=== PATIENT | female | born 1990 | race American Indian/Alaskan Native ===

== ENCOUNTER 2019-02-04 11:29 | Emergency (ER) | payer SELFPAY ==
[2019-02-04 13:16] LABS: Bilirubin,Urine NEG (Negative); Blood,Urine LG (Negative); Color,Urine Yellow (Yellow); Mucus,Urine FEW /HPF; Protein,Urine <15 mg/dL mg/dL (Negative); Urobilinogen,Urine < 2.0 mg/dL (<2.0)
[2019-02-04 13:28] LABS: Basophils # (Auto) 0.1 K/mm3 (0.0-0.1); Eosinophils # (Auto) 0.1 K/mm3 (0.0-0.4); Eosinophils % (Auto) 1.3 % (0.0-4.3); Hematocrit 37.1 % (30.3-42.9); Hemoglobin 11.9 gm/dl (10.1-14.3); Lymphocytes # (Auto) 3.6 K/mm3 (1.2-5.4); Lymphocytes % (Auto) 38.6 % (13.4-35.0); Mean Corpuscular HGB Conc 32 % (30-34); Mean Corpuscular Volume 81 fl (79-97); Monocytes # (Auto) 0.6 K/mm3 (0.0-0.8); Platelet Count 238 K/mm3 (140-440); Red Blood Count 4.61 M/mm3 (3.65-5.03); Red Cell Distribution Width 17.4 % (13.2-15.2)
[2019-02-04 13:32] LABS: Alanine Aminotransferase 13 units/L (7-56); Albumin 3.9 g/dL (3.9-5); BUN/Creatinine Ratio 15; Blood Urea Nitrogen 9 mg/dL (7-17); Calcium 9.1 mg/dL (8.4-10.2); Hemolysis Index 4
--- NOTE | 2019-02-04 14:23 | Emergency Department Report ---
ED Abdominal Pain HPI - General Chief Complaint: Nausea/Vomiting/Diarrhea Stated Complaint: ABD PAIN/N/V Time Seen by Provider: 02/04/19 13:42 Source: patient Mode of arrival: Ambulatory Limitations: No Limitations - History of Present Illness Initial Comments: 28 female c/o abdominal pain every morning between 4a-6am x 1 month. The pain in mostly at RLQ radiates to center of her abdomen. Pain worsens with lying flat and she associated with burning around her breast. She reports a h/o acid reflux, gastritis, and umbilical hernia. She denies fever no diarrhea no cough or URI symptoms. LMP 01/03/19 She's currently taking gaviscon for gastritis as prescribed by her GI doctor -: Gradual, month(s) (1) Location: RUQ, suprapubic Migration to: suprapubic Severity: moderate Severity scale (0 -10): 6 Quality: burning Consistency: constant Improves With: nothing Worsens With: other (lying flat and certain foods) Associated Symptoms: nausea, vomiting. denies: diarrhea, fever, chills, constipation, melena, hematuria Treatments Prior to Arrival: antacids - Related Data LMP Date: 01/03/19 Previous Rx's Medication Instructions Recorded Last Taken Type Famotidine [Pepcid] 20 mg PO BID 30 Days #60 tablet 02/04/19 Unknown Rx Allergies Allergy/AdvReac Type Severity Reaction Status Date / Time No Known Allergies Allergy Unverified 02/04/19 11:35 ED Review of Systems ROS: Stated complaint: ABD PAIN/N/V Other details as noted in HPI Comment: All other systems reviewed and negative Gastrointestinal: abdominal pain, nausea, vomiting. denies: diarrhea, constipation, melena, hematochezia Genitourinary: denies: dysuria ED Past Medical Hx - Past Medical History Previous Medical History?: Yes Additional medical history: Anemia. Gastritis. "enlarged liver." - Surgical History Past Surgical History?: No - Social History Smoking Status: Never Smoker - Medications Home Medications: Home Medications Medication Instructions Recorded Confirmed Last Taken Type Famotidine [Pepcid] 20 mg PO BID 30 Days #60 tablet 02/04/19 Unknown Rx ED Physical Exam - General Limitations: No Limitations General appearance: alert, in no apparent distress - Eye Eye exam: Present: normal appearance - Respiratory Respiratory exam: Present: normal lung sounds bilaterally, respiratory distress - Cardiovascular Cardiovascular Exam: Present: regular rate, normal heart sounds - GI/Abdominal GI/Abdominal exam: Present: soft, tenderness (RLQ), normal bowel sounds. Absent: distended, guarding, rebound, rigid - Back Exam Back exam: Present: normal inspection, full ROM - Neurological Exam Neurological exam: Present: alert, oriented X3 - Psychiatric Psychiatric exam: Present: normal affect - Skin Skin exam: Present: warm, dry, intact, normal color ED Course Vital Signs 02/04/19 02/04/19 02/04/19 12:11 15:11 18:57 Temperature 98.1 F 98.7 F 98.3 F Pulse Rate 73 77 62 Respiratory 18 18 18 Rate Blood Pressure 129/100 181/117 151/96 O2 Sat by Pulse 99 100 99 Oximetry ED Medical Decision Making - Lab Data Result diagrams: 02/04/19 12:39 02/04/19 12:39 - Radiology Data Radiology results: report reviewed CT ABDOMEN: Lung Bases: No significant abnormality. Liver: No significant abnormality. Biliary: No significant abnormality. Spleen: No significant abnormality. Unenlarged. Pancreas: No significant abnormality. Adrenals: No significant abnormality. Kidneys: No significant abnormality. Lymphatics: No lymphadenopathy. Vasculature: No significant abnormality. Bowel/Peritoneum: No acute findings. No free air. No free fluid. Normal appe ndix. Small fat- containing umbilical hernia. CT PELVIC: : No significant abnormality. Lymphatics: No lymphadenopathy. Osseous Structures: No aggressive appearing osseous lesions. Additional Findings: None IMPRESSION: 1. No acute findings. 2. Small fat-containing umbilical hernia. - Medical Decision Making 28 yo female with hx of chronic gastritis. Today c/o RLQ pain. Pain every morning from 4am-6a. Labs with no acute findings, CTof abd.pelvis no acute findings. Pt is followed by GI instruct follow up GI for further evaluation. Critical Care Time: No Critical care attestation.: If time is entered above; I have spent that time in minutes in the direct care of this critically ill patient, excluding procedure time. ED Disposition Clinical Impression: Abdominal pain Qualifiers: Abdominal location: right lower quadrant Qualified Code(s): R10.31 - Right lower quadrant pain Gastritis Qualifiers: Gastritis type: unspecified gastritis Chronicity: chronic Gastritis bleeding: without bleeding Qualified Code(s): K29.50 - Unspecified chronic gastritis without bleeding Disposition: DC-01 TO HOME OR SELFCARE Is pt being admited?: No Does the pt Need Aspirin: No Condition: Stable Instructions: Gastritis (ED), Abdominal Pain (ED) Additional Instructions: The cat scan done today has no acute findings. Your test was negative. The cause of your ongoing abdominal pain is still not clear. I recommend your follow up with your Gastroenterlogist for further work up of your abdominal pain. I suggest you take Pepcid 20 mg BID for your continuing stomach burning and pain. Continue to modify your diet. No sodas, decrease fatty foods, acidic food et. Follow up with your PCP to get H.Plyori test if this has not been done in the past I also recommend out patient RUQ ultrasound to r/o gallbadder disease or gallstones may be unlikely because your symptoms does not appear to be cause from your gallbladder but to be complete that is my recommendation Prescriptions: Famotidine [Pepcid] 20 mg PO BID 30 Days #60 tablet Referrals: PRIMARY CARE, [Primary Care Provider] - 3-5 Days
--- NOTE | 2019-02-04 17:51 | Cat Scan Report ---
CT ABDOMEN AND PELVIS WITH CONTRAST HISTORY: Right lower quadrant abdominal pain. COMPARISON: None TECHNIQUE: Routine abdominal and pelvic CT exam performed following intravenous contrast administrat ion. The patient received 100 mL of IV Omnipaque 300. All CT scans at this location are performed usi ng CT dose reduction for ALARA by means of automated exposure control. FINDINGS: CT ABDOMEN: Lung Bases: No significant abnormality. Liver: No significant abnormality. Biliary: No significant abnormality. Spleen: No significant abnormality. Unenlarged. Pancreas: No significant abnormality. Adrenals: No significant abnormality. Kidneys: No significant abnormality. Lymphatics: No lymphadenopathy. Vasculature: No significant abnormality. Bowel/Peritoneum: No acute findings. No free air. No free fluid. Normal appendix. Small fat-containin g umbilical hernia. CT PELVIC: : No significant abnormality. Lymphatics: No lymphadenopathy. Osseous Structures: No aggressive appearing osseous lesions. Additional Findings: None IMPRESSION: 1. No acute findings. 2. Small fat-containing umbilical hernia. Signer Name: Donta Madison MD Signed: 02/04/2019 5:46 PM Workstation Name: [id number]
[2019-02-04] MEDS ORDERED: ALUM-MAG HYDROXIDE-SIMETHICONE 200-200-20MG/5ML ORAL LIQD 30 ML PO ONE (18:31)
[2019-02-04] MEDS ORDERED: LIDOCAINE VISCOUS 2% 15 ML ORAL LIQD PO ONE (18:32)
[2019-02-04 18:58] VITALS: BP 151/96
== END 2019-02-04 19:14 | disposition home or self-care (01) ==
LOC: ED 11:29
DX: K29.70 Gastritis, unspecified, without bleeding (principal); D64.9 Anemia, unspecified
CPT/HCPCS: 36415; 74177; 80053; 81001; 84703; 85025; 99284; Q9967

== ENCOUNTER 2021-02-01 11:16 | Emergency (ER) | payer MEDICAID ==
[2021-02-01] MEDS ORDERED: ONDANSETRON 4 MG/2 ML INJ IV ONE (11:34)
[2021-02-01] MEDS ORDERED: MORPHINE 4 MG/1 ML INJ IV ONE (11:34)
[2021-02-01 12:16] VITALS: BP 129/79
--- NOTE | 2021-02-01 12:20 | Emergency Department Report ---
ED General Adult HPI - General Chief complaint: Abdominal Pain Stated complaint: ABDOMINAL PAIN Time Seen by Provider: 02/01/21 11:24 Source: patient Mode of arrival: Ambulatory Limitations: No Limitations - History of Present Illness Initial comments: 30-year-old -[place] female patient presents with complaints of sudden onset of mid/upper abdominal pain starting around 6 AM today. Patient states the pain awoke her from her sleep and feels like a sharp stabbing and cramping type pain. Pain improves with laying on her left side. She reports 2 episodes of vomiting and denies any hematemesis/coffee-ground emesis diarrhea, melena/hematochezia, urinary symptoms, fever/chills/sweats, cough, chest pain, or shortness of breath. Past medical history includes hypertension for which she takes labetalol. Patient denies any other past medical history. Severity scale (0 -10): 10 - Related Data Previous Rx's Medication Instructions Recorded Last Taken Type Famotidine [Pepcid] 20 mg PO BID 30 Days #60 tablet 02/04/19 Unknown Rx Dicyclomine [Bentyl] 20 mg PO QID PRN #40 tablet 02/01/21 Unknown Rx Naproxen 500 mg PO BID PRN #20 tablet 02/01/21 Unknown Rx Ondansetron [Zofran Odt] 4 mg PO Q8HR PRN #20 tab.rapdis 02/01/21 Unknown Rx Allergies Allergy/AdvReac Type Severity Reaction Status Date / Time No Known Allergies Allergy Unverified 02/04/19 11:35 ED Review of Systems ROS: Stated complaint: ABDOMINAL PAIN Other details as noted in HPI Constitutional: denies: chills, diaphoresis, fever, malaise Respiratory: denies: cough Cardiovascular: denies: chest pain Gastrointestinal: abdominal pain, nausea, vomiting. denies: diarrhea, constipation, hematemesis, melena, hematochezia Genitourinary: denies: urgency, dysuria, frequency, hematuria, discharge, abnormal menses, dyspareunia Skin: denies: rash, lesions, change in color Neurological: denies: headache ED Past Medical Hx - Past Medical History Previous Medical History?: Yes Additional medical history: Anemia. Gastritis. "enlarged liver." - Surgical History Past Surgical History?: No - Social History Smoking Status: Never Smoker - Medications Home Medications: Home Medications Medication Instructions Recorded Confirmed Last Taken Type Famotidine [Pepcid] 20 mg PO BID 30 Days #60 tablet 02/04/19 Unknown Rx Dicyclomine [Bentyl] 20 mg PO QID PRN #40 tablet 02/01/21 Unknown Rx Naproxen 500 mg PO BID PRN #20 tablet 02/01/21 Unknown Rx Ondansetron [Zofran Odt] 4 mg PO Q8HR PRN #20 tab.rapdis 02/01/21 Unknown Rx ED Physical Exam - General Limitations: No Limitations General appearance: alert, in no apparent distress, obese - Head Head exam: Present: atraumatic, normocephalic - Eye Eye exam: Present: normal appearance - Respiratory Respiratory exam: Present: normal lung sounds bilaterally. Absent: respiratory distress - Cardiovascular Cardiovascular Exam: Present: regular rate, normal rhythm - GI/Abdominal GI/Abdominal exam: Present: soft, tenderness (Tenderness to palpation noted to the periumbilical and epigastric and right upper quadrant area of the abdomen), normal bowel sounds. Absent: rigid - Expanded GI/Abdominal Exam Expanded GI/Abdominal exam: Present: Harrell's sign - Neurological Exam Neurological exam: Present: alert, oriented X3 - Psychiatric Psychiatric exam: Present: normal affect, normal mood - Skin Skin exam: Present: warm, dry, intact, normal color. Absent: rash ED Course Vital Signs 02/01/21 02/01/21 02/01/21 11:22 11:32 12:14 Temperature 97.7 F 97.7 F Pulse Rate 78 61 Respiratory 18 18 20 Rate Blood Pressure 153/102 129/79 O2 Sat by Pulse 100 97 Oximetry ED Medical Decision Making - Lab Data Result diagrams: 02/01/21 11:59 02/01/21 11:59 Lab Results 02/01/21 02/01/21 02/01/21 Range/Units 11:59 11:59 11:59 WBC 11.0 (4.5-11.0) K/mm3 RBC 4.91 (3.65-5.03) M/mm3 Hgb 13.3 (10.1-14.3) gm/dl Hct 42.2 (30.3-42.9) % MCV 86 (79-97) fl MCH 27 L (28-32) pg MCHC 32 (30-34) % RDW 14.8 (13.2-15.2) % Plt Count 229 (140-440) K/mm3 Lymph % (Auto) 22.2 (13.4-35.0) % Holmes % (Auto) 4.3 (0.0-7.3) % Eos % (Auto) 0.2 (0.0-4.3) % Baso % (Auto) 0.5 (0.0-1.8) % Lymph # (Auto) 2.4 (1.2-5.4) K/mm3 Holmes # (Auto) 0.5 (0.0-0.8) K/mm3 Eos # (Auto) 0.0 (0.0-0.4) K/mm3 Baso # (Auto) 0.1 (0.0-0.1) K/mm3 Seg Neutrophils % 72.8 H (40.0-70.0) % Seg Neutrophils # 8.0 H (1.8-7.7) K/mm3 Sodium 136 L (137-145) mmol/L Potassium 4.0 (3.6-5.0) mmol/L Chloride 101.2 (98-107) mmol/L Carbon Dioxide 21 L (22-30) mmol/L Anion Gap 18 mmol/L BUN 13 (7-17) mg/dL Creatinine 0.6 (0.6-1.2) mg/dL Estimated GFR > 60 ml/min BUN/Creatinine Ratio 22 % Glucose 87 (65-100) mg/dL Calcium 8.9 (8.4-10.2) mg/dL Total Bilirubin 0.70 (0.1-1.2) mg/dL AST 182 H (5-40) units/L ALT 107 H (7-56) units/L Alkaline Phosphatase 91 (35-129) units/L Total Protein 7.4 (6.3-8.2) g/dL Albumin 3.9 (3.9-5) g/dL Albumin/Globulin Ratio 1.1 % Lipase 15 (13-60) units/L HCG, Qual Negative (Negative) - Radiology Data Radiology results: report reviewed ULTRASOUND ABDOMEN, LIMITED (RIGHT UPPER QUADRANT) INDICATION / CLINICAL INFORMATION: acute mid/RUQ pain. COMPARISON: None available. FINDINGS: PANCREAS: Visualized portion shows no significant abnormality. LIVER: No significant abnormality. GALLBLADDER: Gallstones without sonographic evidence of acute cholecystitis. BILE DUCTS: No significant abnormality. Common bile duct measures 4 mm. FREE FLUID: None. ADDITIONAL FINDINGS: None. IMPRESSION: 1. Cholelithiasis. No sonographic evidence of acute cholecystitis. - Medical Decision Making 30-year-old -[place] female patient presents with complaints of sudden onset of mid/upper abdominal pain starting around 6 AM today. Patient states the pain awoke her from her sleep and feels like a sharp stabbing and cramping type pain. Pain improves with laying on her left side. She reports 2 episodes of vomiting and denies any hematemesis/coffee-ground emesis diarrhea, melena/hematochezia, urinary symptoms, fever/chills/sweats, cough, chest pain, or shortness of breath. Past medical history includes hypertension for which she takes labetalol. Patient denies any other past medical history. No acute abnormalities noted on CBC, CMP, or lipase. Ultrasound shows cholelithiasis without cholecystitis. Vitals are normal. Patient's pain is controlled and no vomiting is observed here in the ED. Suspect symptoms are due to biliary colic. Recommend follow-up with gastroenterology, referral provided. Discussed presumptive diagnosis, care plan, and signs and symptoms that should prompt immediate return to the ED with patient who verbalizes understanding. Critical care attestation.: If time is entered above; I have spent that time in minutes in the direct care of this critically ill patient, excluding procedure time. ED Disposition Clinical Impression: Cholelithiases, Biliary colic, Abdominal pain Disposition: HOME / SELF CARE / HOMELESS Is pt being admited?: No Condition: Stable Instructions: Cholelithiasis, Biliary Colic, Adult, Gallbladder Eating Plan, Abdominal Pain (ED) Prescriptions: Dicyclomine [Bentyl] 20 mg PO QID PRN #40 tablet PRN Reason: cramping pain Naproxen 500 mg PO BID PRN #20 tablet PRN Reason: pain Ondansetron [Zofran Odt] 4 mg PO Q8HR PRN #20 tab.rapdis PRN Reason: Nausea Referrals: [facility] [Provider Group] - 3-5 Days
[2021-02-01 12:49] LABS: Basophils # (Auto) 0.1 K/mm3 (0.0-0.1); Basophils % (Auto) 0.5 % (0.0-1.8); Eosinophils % (Auto) 0.2 % (0.0-4.3); Hematocrit 42.2 % (30.3-42.9); Hemoglobin 13.3 gm/dl (10.1-14.3); Lymphocytes # (Auto) 2.4 K/mm3 (1.2-5.4); Lymphocytes % (Auto) 22.2 % (13.4-35.0); Mean Corpuscular HGB Conc 32 % (30-34); Mean Corpuscular Volume 86 fl (79-97); Monocytes # (Auto) 0.5 K/mm3 (0.0-0.8); Monocytes % (Auto) 4.3 % (0.0-7.3); Platelet Count 229 K/mm3 (140-440); Red Blood Count 4.91 M/mm3 (3.65-5.03); Red Cell Distribution Width 14.8 % (13.2-15.2)
[2021-02-01 14:43] LABS: Alanine Aminotransferase 107 units/L (7-56); Albumin 3.9 g/dL (3.9-5); Blood Urea Nitrogen 13 mg/dL (7-17); Calcium 8.9 mg/dL (8.4-10.2); Hemolysis Index 6
[2021-02-01 14:44] LABS: BUN/Creatinine Ratio 22
--- NOTE | 2021-02-01 14:46 | Ultrasound Report ---
ULTRASOUND ABDOMEN, LIMITED (RIGHT UPPER QUADRANT) INDICATION / CLINICAL INFORMATION: acute mid/RUQ pain. COMPARISON: None available. FINDINGS: PANCREAS: Visualized portion shows no significant abnormality. LIVER: No significant abnormality. GALLBLADDER: Gallstones without sonographic evidence of acute cholecystitis. BILE DUCTS: No significant abnormality. Common bile duct measures 4 mm. FREE FLUID: None. ADDITIONAL FINDINGS: None. IMPRESSION: 1. Cholelithiasis. No sonographic evidence of acute cholecystitis. Signer Name: Indra Rocha MD Signed: 02/01/2021 2:41 PM Workstation Name: [id number]
[2021-02-01 15:56] LABS: Bilirubin,Urine NEG (Negative); Blood,Urine NEG (Negative); Color,Urine Yellow (Yellow); Mucus,Urine FEW /HPF; Protein,Urine <15 mg/dL mg/dL (Negative); WBC,Urine < 1.0 /HPF (0.0-6.0)
== END 2021-02-01 15:45 | disposition home or self-care (01) ==
LOC: ED 11:16
DX: K81.9 Cholecystitis, unspecified (principal); R10.9 Unspecified abdominal pain
CPT/HCPCS: 36415; 76705; 80053; 81001; 83690; 84703; 85025; 96374; 96375; 99284; J2270; J2405

== ENCOUNTER 2021-05-15 03:44 | Emergency (ER) | payer MEDICAID ==
[2021-05-15] MEDS ORDERED: MORPHINE 4 MG/1 ML INJ IV STA (05:15)
[2021-05-15] MEDS ORDERED: ONDANSETRON 4 MG/2 ML INJ IV STA (05:15)
[2021-05-15 06:08] VITALS: BP 148/93
--- NOTE | 2021-05-15 06:09 | Emergency Department Report ---
ED Abdominal Pain HPI - General Chief Complaint: Abdominal Pain Stated Complaint: GALLSTONE CRAMP Time Seen by Provider: 05/15/21 05:10 Source: patient Mode of arrival: Ambulatory Limitations: No Limitations - History of Present Illness Initial Comments: 30-year-old -[place] female with elevated BMI and recent history of gallbladder attacks presents emerged apartment complaining of another gallbladder flareup which she thinks may secondary to a stone she has been seen in emergency department about 3 weeks ago and follow-up with specialist about 2 weeks ago at which point time she did not have a surgical abdomen although considerable amount of pain. She presents today with another exacerbation but states that it feels worse with associated with some nausea and and vomiting and requests a shot of morphine and antinausea medication as it did work very well the previous time. Reports no fever, chills, sweats. No hemoptysis hematemesis hematochezia Complaint: abdominal pain -: Gradual Location: RUQ Radiation: none Migration to: no migration Severity: severe Severity scale (0 -10): 10 Quality: dull Consistency: constant Improves With: nothing Worsens With: nothing Associated Symptoms: nausea, vomiting. denies: fever, constipation, hematemesis, hematuria, anorexia, syncope - Related Data Previous Rx's Medication Instructions Recorded Last Taken Type Famotidine [Pepcid] 20 mg PO BID 30 Days #60 tablet 02/04/19 Unknown Rx Dicyclomine [Bentyl] 20 mg PO QID PRN #40 tablet 02/01/21 Unknown Rx Naproxen 500 mg PO BID PRN #20 tablet 02/01/21 Unknown Rx Ondansetron [Zofran Odt] 4 mg PO Q8HR PRN #20 tab.rapdis 02/01/21 Unknown Rx Allergies Allergy/AdvReac Type Severity Reaction Status Date / Time No Known Allergies Allergy Unverified 05/03/21 08:14 ED Review of Systems ROS: Stated complaint: GALLSTONE CRAMP Other details as noted in HPI Comment: All other systems reviewed and negative ED Past Medical Hx - Past Medical History Previous Medical History?: Yes Hx Hypertension: Yes Additional medical history: chronic anemia, gastritis, umbilical hernia, gallstones - Surgical History Past Surgical History?: No - Social History Smoking Status: Never Smoker - Medications Home Medications: Home Medications Medication Instructions Recorded Confirmed Last Taken Type Famotidine [Pepcid] 20 mg PO BID 30 Days #60 tablet 02/04/19 Unknown Rx Dicyclomine [Bentyl] 20 mg PO QID PRN #40 tablet 02/01/21 Unknown Rx Naproxen 500 mg PO BID PRN #20 tablet 02/01/21 Unknown Rx Ondansetron [Zofran Odt] 4 mg PO Q8HR PRN #20 tab.rapdis 02/01/21 Unknown Rx ED Physical Exam - General Limitations: No Limitations General appearance: alert, in no apparent distress, other (Patient lying on the hospital floor and address next to her vomiting crying complaining of pain) - Head Head exam: Present: atraumatic, normocephalic - Eye Eye exam: Present: normal appearance, PERRL, EOMI Pupils: Present: normal accommodation - ENT ENT exam: Present: normal exam, mucous membranes moist - Neck Neck exam: Present: normal inspection, full ROM - Respiratory Respiratory exam: Present: normal lung sounds bilaterally. Absent: respiratory distress, wheezes, rales, chest wall tenderness - Cardiovascular Cardiovascular Exam: Present: regular rate, normal rhythm. Absent: systolic murmur, diastolic murmur, rubs, gallop - GI/Abdominal GI/Abdominal exam: Present: soft, tenderness (Upper quadrant with palpation positive Harrell's), normal bowel sounds - Extremities Exam Extremities exam: Present: normal inspection, normal capillary refill - Back Exam Back exam: Present: normal inspection. Absent: CVA tenderness (R), CVA tenderness (L) - Neurological Exam Neurological exam: Present: alert, oriented X3, CN II-XII intact, normal gait - Psychiatric Psychiatric exam: Present: normal affect, normal mood. Absent: flat affect, manic - Skin Skin exam: Present: warm, dry, intact, normal color. Absent: rash, diaphoretic, erythema ED Course Vital Signs 05/15/21 05/15/21 04:23 05:22 Temperature 98.0 F Pulse Rate 85 Respiratory 17 22 Rate O2 Sat by Pulse 99 Oximetry ED Medical Decision Making - Medical Decision Making The patient is oriented to person, place, and time, has the capacity to make decisions regarding the medical care offered. The patient speaks coherently and exhibits no evidence of having an altered level of consciousness or alcohol or drug intoxication to a point that would impair judgment. They respond knowingly to questions about recommended treatment and alternate treatments including no further testing or treatment; participate in diagnostic and treatment decisions by means of rational thought processes; and understand the items of minimum basic medical treatment information with respect to that treatment (the nature and seriousness of the illness, the nature of the treatment, the probable degree and duration of any benefits and risks of any medical intervention that is being recommended, and the consequences of lack of treatment, and the nature, risks, and benefits of any reasonable alternatives). I have reviewed the relevant issues with the patient. They are aware of the shahid spected diagnosis suggested by screening exam, [_acute cholecystitis], based upon the initiated medical screening exam. The patient acknowledges understanding of the reasons for recommendations regarding medical treatment, medical testing, and further monitoring and observation. The recommended medical care being refused has been discussed with the patient and is ultrasound of the right upper quadrant. The risks of refusing recommended care that were disclosed and acknowledged by the patient are loss of current lifestyle, permanent mental impairment, and . The patient understands the relevant information of the nature of their medical condition, as well as the risks, benefits, and treatment alternatives (including non-treatment), consequences of refusing care, and can competently communicate a rational explanation about their choice of care options. [Discharge instructions were provided to the patient.] The patient understands they are welcome to return to the hospital at any time to receive the recommended care or any other care at any time, regardless of their ability to pay for such care. Patient is requesting IV morphine and antinausea medication prior to discharge. Patient is also aware of the [place] she had nonsurgical gallbladder attack 2 weeks ago that her situation may have changed today but is planning on following with a specialist later today . Critical care attestation.: If time is entered above; I have spent that time in minutes in the direct care of this critically ill patient, excluding procedure time. ED Disposition Clinical Impression: RUQ abdominal pain Disposition: 01 HOME / SELF CARE / HOMELESS Is pt being admited?: No Does the pt Need Aspirin: No Condition: Undetermined Instructions: Nausea and Vomiting, Adult, Abdominal Pain (ED) Referrals: PRIMARY CARE, [Referring] - BRODIE (Please keep appointment with your primary gallbladder physician later this morning)
== END 2021-05-15 06:08 | disposition home or self-care (01) ==
LOC: ED 03:44
DX: R10.11 Right upper quadrant pain (principal); R11.2 Nausea with vomiting, unspecified; I10 Essential (primary) hypertension
CPT/HCPCS: 96374; 96375; 99282; J2270; J2405

== ENCOUNTER 2021-11-09 04:22 | Emergency (ER) | payer MEDICAID ==
[2021-11-09 05:18] LABS: Basophils # (Auto) 0.1 K/mm3 (0.0-0.1); Basophils % (Auto) 0.7 % (0.0-1.8); Eosinophils # (Auto) 0.1 K/mm3 (0.0-0.4); Eosinophils % (Auto) 0.7 % (0.0-4.3); Hematocrit 40.5 % (30.3-42.9); Hemoglobin 13.2 gm/dl (10.1-14.3); Lymphocytes # (Auto) 1.8 K/mm3 (1.2-5.4); Lymphocytes % (Auto) 13.4 % (13.4-35.0); Mean Corpuscular HGB Conc 33 % (30-34); Mean Corpuscular Volume 86 fl (79-97); Monocytes # (Auto) 0.6 K/mm3 (0.0-0.8); Monocytes % (Auto) 4.6 % (0.0-7.3); Platelet Count 230 K/mm3 (140-440); Red Blood Count 4.73 M/mm3 (3.65-5.03); Red Cell Distribution Width 15.6 % (13.2-15.2)
[2021-11-09 05:37] LABS: BUN/Creatinine Ratio 14; Blood Urea Nitrogen 7 mg/dL (7-17); Calcium 9.5 mg/dL (8.4-10.2); Hemolysis Index 2
[2021-11-09] MEDS ORDERED: SODIUM CHLORIDE 0.9% 1000 ML 1,000 ML IV ONE (07:56)
[2021-11-09] MEDS ORDERED: METOCLOPRAMIDE 10 MG/2 ML INJ IV ONE (07:56)
[2021-11-09] MEDS ORDERED: diphenhydrAMINE 50 MG/ML VIAL IV ONE (07:56)
--- NOTE | 2021-11-09 09:52 | Ultrasound Report ---
ULTRASOUND OBSTETRIC INDICATION / CLINICAL INFORMATION: vag bleed pos preg. - Clinical Gestational Age (GA) in weeks, days: 6, 2 TECHNIQUE: Transabdominal. COMPARISON: None available. FINDINGS: Single intrauterine . Biparietal Diameter = 2.9 cm = 15, 2 weeks, days Head Circumference = 10.4 cm = 15, 0 weeks, days Abdominal Circumference = 8.0 cm = 14, 3 weeks, days Femur Length = 1.5 cm = 14, 2 weeks, days Average Ultrasound Age (AUA) = 14, 5 weeks, days Heart Rate: 155 beats per minute. Estimated Weight in grams (if calculated): Not calculated Estimated Weight Growth Percentile (if calculated): Not calculated Position: cephalic. Cervix: closed. Length in cm (if measured): Not measured. Placenta: posterior and free of the os. Amniotic Fluid Volume: normal Amniotic Fluid Index (JOHAN) in cm (if calculated): Not calculated. Maternal Adnexa: Not imaged. IMPRESSION: 1. Single, living intrauterine with estimated sonographic age of 14, 5 weeks, days. 2. No significant sonographic abnormality. Signer Name: Don Wilson MD Signed: 11/09/2021 9:48 AM Workstation Name: [email or web address]
--- NOTE | 2021-11-09 10:36 | Emergency Department Report ---
ED HPI - General Chief complaint: Vaginal Bleeding Stated complaint: ABD PAIN Time Seen by Provider: 11/09/21 10:33 Source: patient Mode of arrival: Ambulatory Limitations: No Limitations - History of Present Illness Initial comments: 31 YR OLD FEMALE PRESENTS W/ C/O ABD PAIN & VAG BLEEDING X 2 WEEKS Complaint: vaginal bleeding -: days(s) Radiation: none Severity scale (0 -10): 0 Consistency: intermittent Associated symptoms: denies: denies other symptoms, nausea/vomiting :: Yes Number of weeks : 14 OB History - Current : hypertension OB History - Previous Pregnancies: no complications Pre-ender care: followed by OB - Related Data : 4 Para: 1 Previous Rx's Medication Instructions Recorded Last Taken Type Famotidine [Pepcid] 20 mg PO BID 30 Days #60 tablet 02/04/19 Unknown Rx Dicyclomine [Bentyl] 20 mg PO QID PRN #40 tablet 02/01/21 Unknown Rx Naproxen 500 mg PO BID PRN #20 tablet 02/01/21 Unknown Rx Ondansetron [Zofran Odt] 4 mg PO Q8HR PRN #20 tab.rapdis 02/01/21 Unknown Rx Allergies Allergy/AdvReac Type Severity Reaction Status Date / Time No Known Allergies Allergy Unverified 05/03/21 08:14 ED Review of Systems ROS: Stated complaint: ABD PAIN Other details as noted in HPI Constitutional: denies: chills, fever Eyes: denies: eye pain, eye discharge, vision change ENT: denies: ear pain, throat pain Respiratory: denies: cough, shortness of breath, wheezing Cardiovascular: denies: chest pain, palpitations Endocrine: no symptoms reported Gastrointestinal: denies: abdominal pain, nausea, diarrhea Genitourinary: denies: urgency, dysuria, discharge Musculoskeletal: denies: back pain, joint swelling, arthralgia Skin: denies: rash, lesions Neurological: denies: headache, weakness, paresthesias Psychiatric: denies: anxiety, depression Hematological/Lymphatic: denies: easy bleeding, easy bruising ED Past Medical Hx - Past Medical History Previous Medical History?: Yes Hx Hypertension: Yes Additional medical history: chronic anemia, gastritis, umbilical hernia, gallstones - Surgical History Past Surgical History?: No - Social History Smoking Status: Never Smoker - Medications Home Medications: Home Medications Medication Instructions Recorded Confirmed Last Taken Type Famotidine [Pepcid] 20 mg PO BID 30 Days #60 tablet 02/04/19 Unknown Rx Dicyclomine [Bentyl] 20 mg PO QID PRN #40 tablet 02/01/21 Unknown Rx Naproxen 500 mg PO BID PRN #20 tablet 02/01/21 Unknown Rx Ondansetron [Zofran Odt] 4 mg PO Q8HR PRN #20 tab.rapdis 02/01/21 Unknown Rx ED Physical Exam - General Limitations: No Limitations General appearance: alert, in no apparent distress - Head Head exam: Present: atraumatic, normocephalic - Eye Eye exam: Present: normal appearance - ENT ENT exam: Present: mucous membranes moist - Neck Neck exam: Present: normal inspection - Respiratory Respiratory exam: Present: normal lung sounds bilaterally. Absent: respiratory distress - Cardiovascular Cardiovascular Exam: Present: regular rate, normal rhythm. Absent: systolic murmur, diastolic murmur, rubs, gallop - GI/Abdominal GI/Abdominal exam: Present: soft, normal bowel sounds - Extremities Exam Extremities exam: Present: normal inspection - Back Exam Back exam: Present: normal inspection - Neurological Exam Neurological exam: Present: alert, oriented X3 - Psychiatric Psychiatric exam: Present: normal affect, normal mood - Skin Skin exam: Present: warm, dry, intact, normal color. Absent: rash ED Course Vital Signs 11/09/21 04:36 Temperature 99.7 F H Pulse Rate 119 H Respiratory 18 Rate Blood Pressure 149/117 O2 Sat by Pulse 97 Oximetry ED Medical Decision Making - Lab Data Result diagrams: 11/09/21 04:43 11/09/21 04:43 - Radiology Data Radiology results: report reviewed, image reviewed - Medical Decision Making no active bleeding , US showed 14 weeks 5 days , BP is 140/90 pt takes labetalol Critical care attestation.: If time is entered above; I have spent that time in minutes in the direct care of this critically ill patient, excluding procedure time. ED Disposition Clinical Impression: Vaginal bleeding during , HTN in , chronic Disposition: 01 HOME / SELF CARE / HOMELESS Is pt being admited?: No Does the pt Need Aspirin: No Condition: Stable Instructions: Hypertension (ED), Hypertension During , [id number], Hypertension, Adult, [id number]
[2021-11-09 10:45] VITALS: BP 149/92
== END 2021-11-09 10:46 | disposition home or self-care (01) ==
LOC: ED 04:22
DX: O20.8 Other hemorrhage in early pregnancy (principal); I10 Essential (primary) hypertension; G89.29 Other chronic pain; Z98.890 Other specified postprocedural states; Z79.899 Other long term (current) drug therapy; Z3A.14 14 weeks gestation of pregnancy
CPT/HCPCS: 36415; 76801; 76805; 80048; 84702; 85025; 86900; 86901; 99284